=== PATIENT | female | born 1970 | race Asian ===

== ENCOUNTER → 2023-08-06 15:28 | Outpatient (REF) | payer BC, SELFPAY | LOC: WDC 15:28 | PROVIDERS: ATTENDING PHYSICIAN Nurse Practitioner Adult Health; FAMILY PHYSICIAN Family Medicine | DX: Z12.31 Encounter for screening mammogram for malignant neoplasm of breast (principal) | CPT/HCPCS: 77063; 77067 ==

== ENCOUNTER → 2024-08-11 15:46 | Outpatient (REF) | payer BC, SELFPAY | LOC: WDC 15:46 | PROVIDERS: ATTENDING PHYSICIAN Nurse Practitioner Adult Health | DX: Z12.31 Encounter for screening mammogram for malignant neoplasm of breast (principal) | CPT/HCPCS: 77063; 77067 ==